=== PATIENT | female | born 1980 | race Caucasian/White ===

== ENCOUNTER 2016-05-11 09:15 | Observation (INO) | payer OTHER ==
[2016-05-11] MEDS ORDERED: ASPIRIN CHEWTAB 81 MG TABLET ONE (09:51)
[2016-05-11 09:59] LABS: ABSOLUTE NEUTROPHIL COUNT 5.2 K/mm3 (1.8-7.7); BASO # 0.1 K/mm3 (0.0-0.2); BASO % 0.6 % (0.2-1.0); EOS # 0.6 (0.0-0.5); EOS % 6.7 % (0.9-2.9); HEMATOCRIT 37.6 % (37.0-47.0); HEMOGLOBIN 11.8 gm/l (12.0-16.0); IMM NEUT% 0.5 % (0-1); LYMPH # 2.5 (1.0-4.8); LYMPH % 28.5 % (15-45); MEAN CELL VOLUME 86.8 fl (81.0-99.0); MEAN CORPUSCULAR HEMOGLOBIN 27.3 pg (27.0-31.0); MEAN CORPUSCULAR HGB CONC 31.4 g/dl (33.0-37.0); MEAN PLATELET VOLUME 11.4 fl (7.4-10.4); MONO # 0.5 (0.0-0.8); MONO % 5.4 % (4-12); NEUT % 58.3 % (43-75); PLATELET COUNT 274 K/mm3 (130-400); RED CELL DISTRIBUTION WIDTH 12.7 % (11.5-14.5)
--- NOTE | 2016-05-11 10:20 | RAD ---
Exam: Two-view chest COMPARISON: Upper sternal sharp stabbing pain that gets worse with movement and deep breathing since yesterday. Finding: PA and lateral views of the chest were obtained. Lung volumes are low, with asymmetric elevation of the left hemidiaphragm. Cardiac silhouette is within normal limits. There is no focal airspace disease or pleural effusion. No pneumothorax is identified. Bones of the chest wall are intact. IMPRESSION: Low lung volumes with asymmetric elevation of the left hemidiaphragm. Otherwise negative two-view chest.
[2016-05-11 10:22] LABS: ALBUMIN 3.4 gm/dL (3.5-5.7); CALCIUM 8.9 mg/dL (8.6-10.3)
[2016-05-11 11:37] VITALS: BMI 42.7
[2016-05-11 11:39] VITALS: BP 125/70
[2016-05-11] MEDS ORDERED: ACETAMINOPHEN 325 MG TABLET PO PRN (12:05)
[2016-05-11] MEDS ORDERED: MENTHOL/CETYLPYRD 1 EACH LOZENGE PO PRN (12:05)
[2016-05-11] MEDS ORDERED: BLISTEX LIPSTICK 1 EACH TP PRN (12:05)
[2016-05-11] MEDS ORDERED: NITROGLYCERIN 0.4 MG/TAB.SUBL BOT SL PRN (12:05)
[2016-05-11] MEDS ORDERED: SODIUM CHLORIDE 0.9% 100 ML IV PRN (12:05)
[2016-05-11] MEDS ORDERED: MAGNESIUM HYDROXIDE 30 ML UDCUP PO PRN (12:05)
[2016-05-11] MEDS ORDERED: INSULIN ASPART (DOSE) 100 UNITS/1 ML SUB-Q PRN (12:16)
[2016-05-11] MEDS ORDERED: PANTOPRAZOLE 40 MG TABLET DR PO SCH (12:30)
--- NOTE | 2016-05-11 13:02 | HP ---
Elida Redmond [id number] : DATE OF ADMISSION: 05/11/2016 IDENTIFICATION: Ms. Redmond is a 36-year-old followed by Dr. Calixto. CHIEF COMPLAINT: Chest pain. HISTORY OF PRESENT ILLNESS: Ms. Redmond reports sharp substernal chest pain present since yesterday May 10 in the morning. She worked all day yesterday and found that the pain got worse with physical activity better with rest, but never went away. She did get associated dyspnea with activity. No nausea or diaphoresis. She has not had similar symptoms before. She tried to ignore it, but the pain was still there when she woke up this morning, so she came for medical attention. On evaluation in the emergency department she had a normal EKG, normal chest x-ray, and negative troponin. She was referred to the hospitalist service for observation. REVIEW OF SYSTEMS: HEENT: No headache, lightheadedness or loss of consciousness. No problems with ears, eyes, nose or throat. Respiratory: Dyspnea with the chest pain. No cough. Cardiac: As per history of present illness. Gastrointestinal: She has chronic reflux. No diarrhea, constipation, hematochezia, or melena. Genitourinary: Chronic frequency, no dysuria. Last menstrual period three weeks ago. Musculoskeletal: She does report some pain and numbness or tingling in her right shoulder blade and that her legs frequency fall asleep. Constitutional: No fevers and chills. PAST MEDICAL HISTORY: 1. Diabetes mellitus type 2 for the last 16 years treated with a NovoLog insulin pump. She says her blood sugars have been poorly controlled recently. 2. Gastroesophageal reflux disease. 3. Hypothyroidism recently started on thyroid replacement. 4. 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 5. Morbid obesity with body mass index of 42.8. PAST SURGICAL HISTORY: section. ALLERGIES: REPORTED TO DOXYCYCLINE, UNKNOWN REACTION. MEDICATIONS: 1. Omeprazole 20 mg by mouth daily. 2. Lisinopril 10 mg by mouth daily. 3. Levothyroxine 112 mcg by mouth daily. 4. Insulin Aspart per pump. HABITS: She does have a 20 year history of intermittent smoking, quit for good in 2014. Denies any alcohol or drug use. SOCIAL HISTORY: She is . Lives with her kids and boyfriend in [facility]. 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 FAMILY HISTORY: Significant for coronary artery disease, both of her grandfathers had coronary artery bypass grafting and she had an aunt who required coronary artery bypass grafting in her 30's. PHYSICAL EXAMINATION: GENERAL: This is a pleasant morbidly obese young woman in no acute distress. VITAL SIGNS: Temperature 97.9 degrees Fahrenheit, pulse 75, blood pressure 125/70, respiratory rate 18, oxygen saturation 99% on room air. HEENT: Atraumatic. Pupils equal, round, and reactive. Extraocular muscles are intact. Oropharynx is moist. NECK: No adenopathy. CHEST: Clear to auscultation. HEART: Regular. No murmur. ABDOMEN: Soft, obese, nontender, normal bowel tones. No organomegaly. EXTREMITIES: Good dorsalis pedis pulses. No cyanosis, clubbing, or edema. NEUROLOGIC: Alert and oriented. No focal deficits. LABORATORY: White blood cell count 8.9, hemoglobin and hematocrit 11.8 and 37.6, platelets 274. Sodium 138, potassium 4.1, chloride 106, CO2 27, BUN 14, creatinine 0.7, glucose 156. Troponin I less than 0.01. DIAGNOSTICS: Chest x-ray long lung volumes, asymmetric elevation of the left hemidiaphragm otherwise negative. EKG was reported to me as normal. Hard copy was not sent with the patient from the emergency department to the medical/surgical floor. I will review that when available. ASSESSMENT: Ms. Redmond is a 36-year-old with greater than 24 hours duration of chest pain. She does have cardiac risk factors of diabetes and recently stopped smoking as well as significant family history. PLAN: 1. Refer to observation. 2. Serial cardiac enzymes. 3. Anticipate Hemanth protocol/Myocardial perfusion study and will do that as soon as available as she has had chest pain for an extended time with normal cardiac enzymes already. 4. Continue outpatient medications. 5. Venous thrombosis risk is low. She does not require prophylaxis. 6. Full code status. JOB: [id number] CC: Dr. Calixto
--- NOTE | 2016-05-11 16:33 | NUC MED ---
Indication: Chest pain Comparison: None Radiopharmaceutical: 13.9 millicuries technetium 99m sestamibi at rest, 44.6 millicuries technetium 99m sestamibi at stress Findings: Multiple scintigraphic SPECT images were obtained after IV administration of radiopharmaceutical to the patient. Hemanth protocol was used under the supervision of Dr. Hannon. Patient achieved 88 percent of the maximal age predicted heart rate. Patient had no symptoms during the exam. EKG demonstrated no changes or dysrhythmia. Study was terminated at the end of protocol. Scintigraphic images demonstrate normal radiotracer distribution without evidence of ischemia or infarction.. Wall motion is normal. Ejection fraction is 82%. Impression: Normal examination without evidence of ischemia or infarction. Findings were called to Dr. Hannon at approximately 1629 hours on 05/11/2016.
[2016-05-11] MEDS ORDERED: DOCUSATE SODIUM 100 MG CAPSULE PO SCH (21:00)
[2016-05-12] MEDS ORDERED: LEVOTHYROXINE SODIUM 112 MCG TABLET PO SCH (07:30)
[2016-05-12] MEDS ORDERED: LISINOPRIL 10 MG TABLET PO SCH (09:00)
[2016-05-12] MEDS ORDERED: ASPIRIN (ENTERIC COATED) 325 MG TABLET.EC PO SCH (09:00)
== END 2016-05-11 17:30 | disposition home or self-care (01) ==
LOC: ED 09:15 → INTOOBSV 10:58 → MS 10:58
PROVIDERS: ADMIT Family Medicine; ATTEND Family Medicine
DX: I25.10 Atherosclerotic heart disease of native coronary artery without angina pectoris (principal); E11.9 Type 2 diabetes mellitus without complications; K21.9 Gastro-esophageal reflux disease without esophagitis; E03.9 Hypothyroidism, unspecified; R80.9 Proteinuria, unspecified; E66.01 Morbid (severe) obesity due to excess calories; Z68.41 Body mass index [BMI] 40.0-44.9, adult; Z87.891 Personal history of nicotine dependence